=== PATIENT | female | born 1985 | race Two or more races ===

== ENCOUNTER 2023-09-11 12:27 | Emergency (ER) | payer OTHER ==
[~2023-09-11] VITALS: Ht 162.6 cm; Wt 108.8 kg
[2023-09-11 14:06] VITALS: BP 128/88; PULSE 102; RESP 18; TEMP 98.8; O2SAT 96
[2023-09-11 14:21] LABS: COVID19 ANTIGEN SOFIA FIA NEGATIVE (NEGATIVE); Rapid Influenza A Negative (Negative); Rapid Influenza B Negative (Negative)
[2023-09-11] MEDS ORDERED: ACETAMINOPHEN 500 MG TAB PO ONE (14:30)
[2023-09-11] MEDS ORDERED: BENZ100C97 PO (16:45)
[2023-09-11] MEDS ORDERED: LORA10CA PO (16:45)
[2023-09-11] MEDS ORDERED: IBUP-1455 PO (16:45)
[2023-09-11] MEDS ORDERED: ACET500T58 PO (16:45)
== END 2023-09-11 16:51 | disposition home or self-care (01) ==
LOC: ER 12:27
DX: J06.9 Acute upper respiratory infection, unspecified (principal); Z20.822 Contact with and (suspected) exposure to COVID-19
CPT/HCPCS: 36415; 71046; 87426; 87804